=== PATIENT | male | born 1945 | race Caucasian/White ===

== ENCOUNTER 2017-04-26 13:29 | Emergency (ER) | payer OTHER, BC ==
[~2017-04-26] VITALS: Ht 167.6 cm; Wt 70.7 kg
[~2017-04-26 13:29] MED LIST: PROAIR HFA8.5 GM IH
[2017-04-26 15:34] LABS: HEMATOCRIT 45.8 % (38.0-50.0); MCH 32.9 PG (29.0-34.0); MCHC 34.9 G/DL (30.0-36.0); MCV 94.2 FL (86-99); MEAN PLAT.VOLUME 10.3 uM^3 (9.0-12.4); PLATELET COUNT 154 K/uL (156-360); RBC DIS.WIDTH-CV 11.9 % (11.8-14.6); RBC DIS.WIDTH-SD 41.3 % (39-53); RED BLOOD COUNT 4.86 M/uL (4.00-5.50); WHITE BLOOD COUNT 5.4 K/uL (4.1-10.2)
[2017-04-26 15:44] LABS: CHLORIDE 106 mEq/L (99-109); POTASSIUM 4.5 mEq/L (3.7-5.4); SODIUM 137 mEq/L (136-147)
[2017-04-26 15:47] LABS: ANION GAP 11 MEQ/L (2-14)
[2017-04-26 15:50] LABS: GFR ESTIMATE (CALCULATED) 46 mL/min/
[2017-04-26 15:51] LABS: UREA NITROGEN (BUN) 29 mg/dL (9-23)
[2017-04-26 16:00] LABS: GLUCOSE 208 mg/dL (70-99)
[2017-04-26 16:21] LABS: TROP-I INTERPRETATION NEGATIVE; TROPONIN-I < 0.01 ng/mL (0.0-0.30)
[2017-04-26 19:04] VITALS: BP 145/70
== END 2017-04-26 19:04 | disposition home or self-care (01) ==
LOC: EME 13:29
PROVIDERS: Emergency Medicine
DX: T46.4X5A Adverse effect of angiotensin-converting-enzyme inhibitors, initial encounter (principal); R42 Dizziness and giddiness; I10 Essential (primary) hypertension; E11.9 Type 2 diabetes mellitus without complications; J45.909 Unspecified asthma, uncomplicated; Z87.442 Personal history of urinary calculi
CPT/HCPCS: 71020; 80048; 84484; 85027; 93005; 99281; 99284; J7030

== ENCOUNTER 2017-08-27 12:30 | Observation (INO) | payer OTHER, BC ==
[~2017-08-27] VITALS: Ht 167.6 cm; Wt 66.8 kg
[2017-08-27 13:17] LABS: MCH 33.3 PG (29.0-34.0); MCHC 35.4 G/DL (30.0-36.0); MCV 94.1 FL (86-99); MEAN PLAT.VOLUME 9.8 uM^3 (9.0-12.4); PLATELET COUNT 173 K/uL (156-360); RBC DIS.WIDTH-SD 41.8 % (39-53); RED BLOOD COUNT 4.89 M/uL (4.00-5.50); WHITE BLOOD COUNT 5.5 K/uL (4.1-10.2)
[2017-08-27 13:26] LABS: CHLORIDE 106 mEq/L (99-109); POTASSIUM 5.8 mEq/L (3.7-5.4); SODIUM 139 mEq/L (136-147)
[2017-08-27 13:28] LABS: GLUCOSE 152 mg/dL (70-99)
[2017-08-27 13:29] LABS: ANION GAP 10 MEQ/L (2-14)
[2017-08-27 13:30] LABS: TOTAL BILIRUBIN 0.8 mg/dL (0.0-1.0)
[2017-08-27 13:31] LABS: ALKALINE PHOSPHATASE 63 IU/L (3-129)
[2017-08-27 13:32] LABS: GFR ESTIMATE (CALCULATED) 49 mL/min/ (58.99-99999)
[2017-08-27 13:33] LABS: UREA NITROGEN (BUN) 27 mg/dL (9-23)
[2017-08-27 13:38] LABS: TROP-I INTERPRETATION NEGATIVE; TROPONIN-I < 0.01 ng/mL (0.0-0.30)
[2017-08-27 15:40] LABS: ADD MIUA? YES; BILIRUBIN NEGATIVE; BLOOD SMALL; COLOR YELLOW ((YELLOW)); GLUCOSE (STRIP) NEGATIVE; KETONES NEGATIVE; LEUKOCYTES NEGATIVE; NITRITE NEGATIVE; PROTEIN (STRIP) NEGATIVE; SPECIFIC GRAVITY 1.008 (1.000-1.030); UROBILINOGEN 0.2 MG/DL (0.2-1.0)
[2017-08-27 15:49] LABS: BACTERIA NONE SEEN /HPF; EPITHELIAL CELLS NONE SEEN /HPF; HYALINE CASTS 0-5 /LPF; MUCUS TRACE /LPF; RED BLOOD CELLS 0-5 /HPF (0-5); UCUL ADDED? NO; WHITE BLOOD CELLS NONE SEEN /HPF (0-5)
[2017-08-27] MEDS ORDERED: COLESTID1 GM PO (18:05)
[2017-08-27] MEDS ORDERED: PROLIA60 MG/1 ML SC (18:06)
[2017-08-27] MEDS ORDERED: COZAAR25 MG PO (18:06)
[2017-08-27 21:42] VITALS: BP 126/69
[2017-08-28 03:06] VITALS: BP 115/60
[2017-08-28 05:44] LABS: HDL CHOLESTEROL 43 MG/DL (Desirable>=40); LDL CHOLESTEROL 141 mg/dL (Desirable<100); NON-HDL CHOLESTEROL 161 mg/dL (Desirable<160); TOTAL CHOLESTEROL 204 mg/dL (Desirable<200); TRIGLYCERIDES 98 MG/DL (Normal: <150)
[2017-08-28 08:00] VITALS: BP 137/78
[2017-08-28 08:19] LABS: ANION GAP 8 MEQ/L (2-14); CHLORIDE 106 MEQ/L (99-109); GFR ESTIMATE (CALCULATED) 53 mL/min/ (58.99-99999); SODIUM 139 MEQ/L (136-147); UREA NITROGEN (BUN) 19 mg/dL (9-23)
[2017-08-28 08:20] LABS: GLUCOSE 105 mg/dL (70-99)
[2017-08-28 09:12] LABS: Estimated Average Glucose 131 mg/dL (70-123); HEMOGLOBIN A1c (GLYCOHEMOGLOB) 6.2 % HGB (Below 5.7)
[2017-08-28 10:35] LABS: TROP-I INTERPRETATION NEGATIVE; TROPONIN-I < 0.01 ng/mL (0.0-0.30)
[2017-08-28 11:12] VITALS: BP 109/72
[2017-08-28] MEDS ORDERED: AMLODIPINE BESYL5 MG PO (11:55)
== END 2017-08-28 14:02 | disposition home or self-care (01) ==
LOC: EME 12:30 → EDOF 20:01 → ENRESERV 20:04 → EDOF 21:23 → 5WEST 21:40
PROVIDERS: Hospitalist
DX: R42 Dizziness and giddiness (principal); I10 Essential (primary) hypertension; E87.5 Hyperkalemia; J45.20 Mild intermittent asthma, uncomplicated; R10.30 Lower abdominal pain, unspecified; Z88.8 Allergy status to other drugs, medicaments and biological substances; Z82.3 Family history of stroke; Z80.0 Family history of malignant neoplasm of digestive organs; Z80.3 Family history of malignant neoplasm of breast
CPT/HCPCS: 70450; 71010; 74177; 80048; 80053; 80061; 81003; 83036; 83605; 84484; 85027; 93005; 93880; G0378; J0610; J7040; J7050

== ENCOUNTER 2017-09-08 06:17 | Emergency (ER) | payer OTHER, BC ==
[~2017-09-08] VITALS: Ht 167.6 cm; Wt 69.5 kg
[~2017-09-08 06:17] MED LIST changes: +AMLODIPINE BESYL5 MG PO; +COLESTID1 GM PO; +COZAAR25 MG PO; +PROLIA60 MG/1 ML SC
[2017-09-08 07:11] LABS: BASOPHIL (%) 0.1 % (0-1); EOSINOPHIL (%) 0 % (0-5); HEMATOCRIT 48.3 % (38.0-50.0); HEMOGLOBIN 17.2 G/DL (12.5-16.6); IMMATURE GRANULOCYTE (%) 0.4 % (0.0-0.7); LYMPHOCYTE (%) 1.4 % (15-42); LYMPHOCYTE COUNT 0.2 K/uL (1.0-2.8); MCH 33.1 PG (29.0-34.0); MCHC 35.6 G/DL (30.0-36.0); MCV 92.9 FL (86-99); MONOCYTE (%) 4.2 % (3-12); MONOCYTE COUNT 0.5 K/uL (0-0.8); NEUTROPHIL (%) 93.9 % (45-76); NEUTROPHIL COUNT 10.8 K/uL (1.8-6.4); PLATELET COUNT 160 K/uL (156-360); RBC DIS.WIDTH-CV 11.9 % (11.8-14.6); RBC DIS.WIDTH-SD 40.9 % (39-53); WHITE BLOOD COUNT 11.5 K/uL (4.1-10.2)
[2017-09-08 07:43] LABS: TROP-I INTERPRETATION NEGATIVE; TROPONIN-I < 0.01 ng/mL (0.0-0.30)
[2017-09-08 07:47] LABS: CK-MB 1.2 ng/mL (0.0-4.9)
[2017-09-08 07:49] LABS: ALBUMIN 4.2 G/DL (3.2-4.8); ALKALINE PHOSPHATASE 53 IU/L (3-129); ALT (GPT) 14 IU/L (3-49); AST (GOT) 18 IU/L (2-34); CHLORIDE 103 MEQ/L (99-109); CKMB RELATIVE INDEX 3.2 (0.0-3.9); CREATINE KINASE 37 IU/L (1-294); CREATININE 1.6 MG/DL (0.6-1.3); GFR ESTIMATE (CALCULATED) 46 mL/min/ (58.99-99999); GLUCOSE 181 mg/dL (70-99); POTASSIUM 5.2 MEQ/L (3.7-5.4); SODIUM 138 MEQ/L (136-147); TOTAL CK 37 IU/L (1-294); TOTAL PROTEIN 7.5 G/DL (6.4-8.3); UREA NITROGEN (BUN) 34 mg/dL (9-23)
[2017-09-08 09:31] LABS: LIPASE 19 U/L (1.0-51.0)
[2017-09-08 11:04] LABS: APPEARANCE CLEAR ((CLEAR)); BILIRUBIN NEGATIVE; BLOOD SMALL; COLOR YELLOW ((YELLOW)); GLUCOSE (STRIP) NEGATIVE; KETONES NEGATIVE; LEUKOCYTES NEGATIVE; NITRITE NEGATIVE; PROTEIN (STRIP) NEGATIVE; UROBILINOGEN 0.2 MG/DL (0.2-1.0)
[2017-09-08 11:09] LABS: BACTERIA NONE SEEN /HPF; EPITHELIAL CELLS NONE SEEN /HPF; MUCUS TRACE /LPF; RED BLOOD CELLS 0-5 /HPF (0-5); UCUL ADDED? NO; WHITE BLOOD CELLS 0-5 /HPF (0-5)
[2017-09-08] MEDS ORDERED: REGLAN10 MG PO (11:50)
[2017-09-08] MEDS ORDERED: ZOFRAN ODT4 MG PO (11:50)
[2017-09-08 12:25] VITALS: BP 118/74
== END 2017-09-08 12:31 | disposition home or self-care (01) ==
LOC: EME → EDBD 06:17 → EME 06:17
PROVIDERS: Emergency Medicine
DX: K52.9 Noninfective gastroenteritis and colitis, unspecified (principal); E86.0 Dehydration; N28.9 Disorder of kidney and ureter, unspecified; R00.0 Tachycardia, unspecified; Z87.442 Personal history of urinary calculi
CPT/HCPCS: 71045; 80053; 81003; 82550; 82553; 83690; 83735; 84484; 85025; 93005; 99281; 99285; J2405; J2765; J7030

== ENCOUNTER 2017-11-12 14:41 | Emergency (ER) | payer OTHER, BC ==
[~2017-11-12] VITALS: Ht 167.6 cm; Wt 70.4 kg
[~2017-11-12 14:41] MED LIST changes: +REGLAN10 MG PO; +ZOFRAN ODT4 MG PO
[2017-11-12 17:21] LABS: BASOPHIL (%) 0.4 % (0-1); EOSINOPHIL (%) 2.4 % (0-5); EOSINOPHIL COUNT 0.2 K/uL (0-0.3); HEMATOCRIT 44.7 % (38.0-50.0); HEMOGLOBIN 16.6 G/DL (12.5-16.6); IMMATURE GRANULOCYTE (%) 0.2 % (0.0-0.7); LYMPHOCYTE (%) 13.8 % (15-42); LYMPHOCYTE COUNT 1.2 K/uL (1.0-2.8); MCH 33.8 PG (29.0-34.0); MCHC 37.1 G/DL (30.0-36.0); MONOCYTE (%) 9.4 % (3-12); MONOCYTE COUNT 0.8 K/uL (0-0.8); NEUTROPHIL (%) 73.8 % (45-76); NEUTROPHIL COUNT 6.2 K/uL (1.8-6.4); PLATELET COUNT 157 K/uL (156-360); RBC DIS.WIDTH-CV 11.9 % (11.8-14.6); RBC DIS.WIDTH-SD 39.8 % (39-53); RED BLOOD COUNT 4.91 M/uL (4.00-5.50); WHITE BLOOD COUNT 8.4 K/uL (4.1-10.2)
[2017-11-12 17:24] LABS: CHLORIDE 107 mEq/L (99-109); SODIUM 138 mEq/L (136-147)
[2017-11-12 17:26] LABS: GLUCOSE 198 mg/dL (70-99)
[2017-11-12 17:29] LABS: CREATININE 1.7 mg/dL (0.6-1.3); GFR ESTIMATE (CALCULATED) 42 mL/min/ (58.99-99999)
[2017-11-12 17:30] LABS: UREA NITROGEN (BUN) 33 mg/dL (9-23)
[2017-11-12 17:38] LABS: TROP-I INTERPRETATION NEGATIVE; TROPONIN-I < 0.01 ng/mL (0.0-0.30)
[2017-11-12 18:20] VITALS: BP 124/71
== END 2017-11-12 18:21 | disposition home or self-care (01) ==
LOC: EME 14:41
PROVIDERS: Physician Assistant
DX: R42 Dizziness and giddiness (principal); T46.1X5A Adverse effect of calcium-channel blockers, initial encounter; I10 Essential (primary) hypertension; J45.909 Unspecified asthma, uncomplicated; Z87.442 Personal history of urinary calculi
CPT/HCPCS: 71046; 80048; 84484; 85025; 93005; 99281; 99284

== ENCOUNTER 2018-04-02 21:55 | Emergency (ER) | payer OTHER, BC ==
[~2018-04-02] VITALS: Ht 167.6 cm; Wt 68.9 kg
[2018-04-02 22:43] LABS: BASOPHIL (%) 0.5 % (0-1); EOSINOPHIL (%) 4.1 % (0-5); EOSINOPHIL COUNT 0.2 K/uL (0-0.3); HEMATOCRIT 41.4 % (38.0-50.0); HEMOGLOBIN 15.2 G/DL (12.5-16.6); IMMATURE GRANULOCYTE (%) 0.2 % (0.0-0.7); LYMPHOCYTE (%) 23.8 % (15-42); LYMPHOCYTE COUNT 1.4 K/uL (1.0-2.8); MCH 32.8 PG (29.0-34.0); MCHC 36.7 G/DL (30.0-36.0); MCV 89.4 FL (86-99); MONOCYTE (%) 13.4 % (3-12); MONOCYTE COUNT 0.8 K/uL (0-0.8); NEUTROPHIL COUNT 3.4 K/uL (1.8-6.4); PLATELET COUNT 141 K/uL (156-360); RBC DIS.WIDTH-CV 11.8 % (11.8-14.6); RBC DIS.WIDTH-SD 38.3 % (39-53); RED BLOOD COUNT 4.63 M/uL (4.00-5.50); WHITE BLOOD COUNT 5.8 K/uL (4.1-10.2)
[2018-04-02 22:54] LABS: CHLORIDE 107 mEq/L (99-109); POTASSIUM 4.3 mEq/L (3.7-5.4); SODIUM 137 mEq/L (136-147)
[2018-04-02 22:55] LABS: GLUCOSE 126 mg/dL (70-99)
[2018-04-02 22:59] LABS: CREATININE 1.5 mg/dL (0.6-1.3); GFR ESTIMATE (CALCULATED) 49 mL/min/ (58.99-99999)
[2018-04-02 23:00] LABS: UREA NITROGEN (BUN) 26 mg/dL (9-23)
[2018-04-02 23:03] LABS: TROP-I INTERPRETATION NEGATIVE; TROPONIN-I < 0.01 ng/mL (0.0-0.30)
[2018-04-03 01:21] VITALS: BP 147/81
== END 2018-04-03 01:23 | disposition home or self-care (01) ==
LOC: EME → EDBD 21:55 → EME 04-03 01:23
PROVIDERS: Emergency Medicine
DX: I10 Essential (primary) hypertension (principal); J45.909 Unspecified asthma, uncomplicated; Z88.8 Allergy status to other drugs, medicaments and biological substances
CPT/HCPCS: 80048; 84484; 85025; 93005; 99281; 99284